=== PATIENT | female | born 1970 | race Caucasian/White ===

== ENCOUNTER 2024-11-11 10:46 | Day surgery (SDC) | payer OTHER, SELFPAY ==
[2024-11-11 12:05] VITALS: BMI 29.9
[2024-11-11 12:06] VITALS: BP 135/75; PULSE 58; RESP 18; TEMP 36.4; O2SAT 97
--- NOTE | 2024-11-11 12:23 | EXP.ANES.CKL ---
[facility] Disclaimer: The information contained in this section may have been updated after the patient was seen, as this information can be updated by other users. Medical History Skin cancer (melanoma) Normal colonoscopy delivery delivered Osteoporosis Spinal stenosis History of IBS Diabetes Hypertension Surgical History Hx of melanoma excision Family History Other Cancer Social History Smoking Status: Current every day smoker alcohol intake: never substance use type: unknown current occupational status: unemployed Travel in the last 8 weeks?: None [facility] Anesthesia Checklist Patient Identification Patient Identification: Arm Band and Verbal (Name & ) Structural Data Admitted From: Home Planned Operative Procedure/s: EGD Consent for Planned Operative Procedure(s) Verified: Yes Verified Documents: Surgical Consent and History and Physical NPO Status Verified Time NPO: 00:00 Additional verifications Anesthesia Reactions: No Airway Assessment Mallampati Score:: Class II Neurological Assessment Level of Consciousness: Awake, Alert and Appropriate Hx Seizures: No Anesthesia Plan Anesthesia Risk discussed: Yes Anesthesia Plan: Verified ASA Class: II Anesthesia Type: MAC
--- NOTE | 2024-11-11 12:55 | EXP.HP ---
History of Present Illness *Admission Date: 11/11/24 *Reason for visit:: Functional dyspepsia/globus sensation and dysphagia *History of present illness: Mrs. Ramos is a 54-year-old female who is here for diagnostic/therapeutic upper endoscopy secondary to globus sensation and dysphagia. 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 The examination is deemed medically necessary for EGD. The patient has been seen, interviewed and examined prior to the procedure by both myself and the anesthesia provider. [facility] Disclaimer: The information contained in this section may have been updated after the patient was seen, as this information can be updated by other users. Medical History Skin cancer (melanoma) Normal colonoscopy delivery delivered Osteoporosis Spinal stenosis History of IBS Diabetes Hypertension Surgical History Hx of melanoma excision Family History Other Cancer Social History (Updated 11/11/24 @ 12:24 by Keri Thorne CRNA) Smoking Status: Current every day smoker alcohol intake: never substance use type: unknown current occupational status: unemployed Travel in the last 8 weeks?: None Have you lived/traveled outside US in past 30 days?: No Contact w/someone who lives/traveled outside US past 30 days?: No Exposure to someone with infectious disease in past 14 days?: No Do you have a fever (greater than 100.4 F or 38 C)?: No Have you tested positive for COVID-19?: No Exposed to someone with COVID-19 in past 14 days?: No Do you have a sore throat?: No Do you have a cough?: No Do you have any weakness?: No Do you have any diarrhea?: No Are you experiencing any unusual bleeding?: No Do you have any muscle aches/pain?: No Do you have any abdominal pain?: No Are you experiencing loss of taste or smell?: No Review of Systems Review of Systems Review of systems (narrative): Negative *Cardiovascular Comments: Negative *Gastrointestinal Comments: Negative *Genitourinary Comments: Negative *Musculoskeletal Comments: Negative *Neurologic Comments: Negative Meds Home Medications and Allergies Home Medications ?Medication ?Instructions ?Recorded ?Confirmed ?Type atorvastatin 40 mg tablet 40 mg PO DAILY 01/24/23 11/11/24 History fenofibrate 54 mg tablet 54 mg PO DAILY 01/24/23 11/11/24 History hydroxyzine HCl 10 mg tablet 10 mg PO DAILY 01/24/23 11/11/24 History methocarbamol 500 mg tablet 500 mg PO TID 01/24/23 11/11/24 History metronidazole 0.75 % topical gel 1 applic topical BID 01/24/23 11/11/24 History mirabegron 50 mg tablet,extended 50 mg PO DAILY 01/24/23 11/11/24 History release 24 hr (Myrbetriq) nitroglycerin 0.3 mg sublingual 0.3 mg sublingual Q5M PRN Chest 01/24/23 11/11/24 History tablet Pain omeprazole 40 mg capsule,delayed 40 mg PO DAILY 01/24/23 11/11/24 History release sertraline 50 mg tablet 50 mg PO DAILY 01/24/23 11/11/24 History dicyclomine 10 mg capsule 10 mg PO DAILY 04/25/23 11/11/24 History albuterol sulfate 90 mcg/actuation 1 puff inhalation BID 09/05/24 11/11/24 History aerosol inhaler (Ventolin HFA) cholecalciferol (vitamin D3) 325 325 mcg PO WEEKLY 09/05/24 11/11/24 History mcg (13,000 unit) capsule fluticasone fur. 100 mcg-umeclid 1 inh inhalation DAILY 09/05/24 11/11/24 History 62.5 mcg-vilant 25 mcg inhalat.powder (Trelegy Ellipta) gabapentin 300 mg capsule 300 mg PO TID 09/05/24 11/11/24 History linaclotide 290 mcg capsule 290 mcg PO DAILY #90 caps 09/05/24 11/11/24 Rx (Linzess) olmesartan 40 1 tab PO DAILY 09/05/24 11/11/24 History mg-hydrochlorothiazide 12.5 mg tablet polyethylene glycol 3350 17 17 g PO DAILY 09/05/24 11/11/24 History gram/dose oral powder (Miralax) New Prescriptions to Start Prescriptions: Allergies Allergy/AdvReac Type Severity Reaction Status Date / Time Sulfa (Sulfonamide Allergy Hives Verified 11/11/24 11:57 Antibiotics) Exam Data for Last 24 hours Vital signs and Labs for Last 24 Hours: Temp Pulse Resp BP Pulse Ox O2 Del Method 97.6 F 58 L 18 135/75 97 Room Air 11/11/24 12:06 11/11/24 12:06 11/11/24 12:06 11/11/24 12:06 11/11/24 12:06 11/11/24 12:06 I & O for Last 24 hours: Intake & Output 11/08/24 11/09/24 11/10/24 11/11/24 23:59 23:59 23:59 23:59 Weight 180 lb *Routine HEENT Exam Head: Present normocephalic Eye: Present EOMI and PERRL ENT: Present mucous membranes moist *Routine Neck Exam Neck: Present supple *Routine Respiratory Exam Respiratory: Present CTA bilaterally *Routine Cardiovascular Exam Cardiovascular: Present RRR *Routine Abdominal Exam Abdominal: Present soft and normoactive bowel sounds; Absent tenderness *Routine Rectal Exam Rectal:: deferred *Routine Genitalia Exam Genitalia:: deferred *Routine Extremities Exam Extremities: Absent cyanosis, clubbing or edema *Routine Skin Exam Skin: Present warm; Absent rash *Routine Neurological Exam Neurological: Present alert and oriented X3 Assessment and Plan *Assessment and plan (1) Dysphagia: Status: Acute Category: Medical Code(s): R13.10 - Dysphagia, unspecified (2) Globus sensation: Status: Acute Category: Medical Code(s): R09.A2 - Foreign body sensation, throat (3) Functional dyspepsia: Status: Acute Category: Medical Code(s): K30 - Functional dyspepsia Plan A/P: 1. Dysphagia/globus sensation with history of functional dyspepsia is the preprocedural diagnosis. The patient will be anesthetized/sedated using MAC sedation. The patient has been seen and examined. Cardiac and lung assessment prior to the examination is stable. Proceed with planned diagnostic EGD.
--- NOTE | 2024-11-11 13:08 | HMH.PROCNOTE ---
[facility] Procedure Note Date: 11/11/24 Time: 13:15 Procedure Note:: Upper Endoscopy Procedure Report: Esophagogastroduodenoscopy with cold biopsies and TTS balloon dilation Endoscopost: Addy Pascual II, MD Referring Physician: Tevin Greer MD Date of Procedure: November 11, 2024 Equipment: Olympus GIF 190 standard upper endoscope Sedation: MAC sedation Indications: Mrs. Ramos is a 54-year-old female who is here for diagnostic/therapeutic upper endoscopy secondary to ongoing choking, globus sensation and dysphagia. She does get discomfort in her throat and this can radiate into the jaw. Her symptoms are more left-sided that are also bilateral in the cricopharyngeal region. She also has a long history of IBS constipation and is on MiraLAX, Linzess and Iberogast. She also has a long history of dyspepsia and continues to have some epigastric abdominal discomfort, fullness, bloating and occasional nausea. She often feels the need to belch but cannot. She does have spinal stenosis and receives injection therapy. Procedure: Prior to the procedure, a history and physical exam was performed, and patient's medications and allergies were reviewed. The risks, benefits and alternatives of the sedation and procedure were discussed with the patient. All questions were answered and informed consent was obtained. The patient was brought to the procedure room. Patient identification and proposed procedure were verified by the physician and the nurse. The patient was placed in a left lateral decubitus position and the scope was passed under direct vision. Throughout the procedure, the patient's blood pressure, pulse, and oxygen saturations were monitored continuously. The upper GI endoscopy was accomplished without difficulty. The patient tolerated the procedure well. Findings: The scope was passed directly into the upper esophagus and advanced to the fourth portion of duodenum and proximal jejunum. A cold biopsy was taken from the proximal jejunum for disaccharidase assay. The proximal jejunum, post bulbar duodenum, ampulla and duodenal bulb were normal with normal mucosa and conniventes. The scope was withdrawn through a normal duodenal bulb and pylorus into the stomach. There was some linear reactive gastropathy of the antrum. There was mild chronic gastritis of the body and fundus. Cold biopsies were taken from the incisura/lesser curvature to rule out H. pylori. Upon retroflexion there was no hiatal hernia. The scope was then withdrawn into the esophagus. There was no evidence of reflux esophagitis or Lott's. There were strong tertiary contractions and evidence of moderate esophageal dysmotility. There were no rings, strictures, corrugation or furrowing. There was no esophageal inlet patch. The entire esophagus was dilated to 60 English/20 mm with a TTS hydrostatic balloon. There was mild resistance at the cricopharyngeus/cricopharyngeal spasm. The remainder of the esophageal mucosa was normal. Impression: 1. Cricopharyngeal spasm status post dilation to 20 mm 2. Nonerosive GERD with moderate esophageal dysmotility 3. Mild linear reactive gastropathy of antrum and mild proximal chronic gastritis Plan: I will follow-up the biopsies. I will discuss the findings along with treatment options to the patient and family.
[2024-11-11 13:18] VITALS: BP 126/83; PULSE 77; RESP 16; TEMP 36.4; O2SAT 97
[2024-11-11 13:28] VITALS: BP 116/75; PULSE 66; RESP 16; O2SAT 99
[2024-11-11 13:38] VITALS: BP 134/71; PULSE 63; RESP 16; O2SAT 99
[2024-11-11 13:48] VITALS: BP 134/72; PULSE 59; RESP 16; TEMP 36.4; O2SAT 100
[2024-11-13 15:11] LABS: Interpretation Notes (.); Lactase 15.89 (>/= 14.0); Maltase 208.42 (>/= 110.0); Palatinase 11.71 (>/= 8.5); Reference Notes (.); Sucrase 42.82 (>/= 25.0)
== END 2024-11-11 14:03 | disposition home or self-care (01) ==
PROVIDERS: PCP Emergency Medicine; Visit Provider Internal Medicine Gastroenterology
PROC: 0DJ08ZZ Inspection of Upper Intestinal Tract, Via Natural or Artificial Opening Endoscopic (ICD-10-PCS; CPT 43239; principal; 2024-11-11 12:30)
DX: K21.9 Gastro-esophageal reflux disease without esophagitis (principal); K31.89 Other diseases of stomach and duodenum; K29.50 Unspecified chronic gastritis without bleeding; K22.4 Dyskinesia of esophagus; M62.838 Other muscle spasm; I10 Essential (primary) hypertension; E11.9 Type 2 diabetes mellitus without complications; K58.1 Irritable bowel syndrome with constipation; Z56.0 Unemployment, unspecified; Z79.899 Other long term (current) drug therapy; Z79.51 Long term (current) use of inhaled steroids; Z88.2 Allergy status to sulfonamides
CPT/HCPCS: 43239; 43249; 74360; 82657; C1726; J2003; J2704

== ENCOUNTER 2025-01-27 06:04 | Day surgery (SDC) | payer OTHER, SELFPAY ==
[2025-01-21 12:39] VITALS: BMI 34.3
--- NOTE | 2025-01-24 12:55 | EXP.HP ---
History of Present Illness *Admission Date: 01/27/25 *History of present illness: Mrs. Ramos is a 54-year-old female who is here for diagnostic colonoscopy. She did have an upper endoscopy with me in November 2024. I had recommended dietary measures and buspirone for her dyspepsia. The patient did go to the ED at [facility] on 12/12/2024. She was admitted with bilateral lower abdominal pain and she has had multiple previous abdominal surgeries for endometriosis. The patient's CAT scan had shown inflammatory changes within the midline and left pelvis suggestive of uncomplicated diverticulitis. The patient was placed on Augmentin. The examination is deemed medically necessary for diagnostic colonoscopy. The patient has been seen, interviewed and examined prior to the procedure by both myself and the anesthesia provider. [facility] Disclaimer: The information contained in this section may have been updated after the patient was seen, as this information can be updated by other users. Medical History Endometriosis Skin cancer (melanoma) Normal colonoscopy delivery delivered Osteoporosis Spinal stenosis History of IBS Diabetes Hypertension Surgical History H/O removal of cyst History of endometrial ablation Hx of melanoma excision Family History Other Cancer Colon cancer Diabetes Lung cancer Social History Smoking Status: Current every day smoker alcohol intake: never substance use type: unknown current occupational status: disabled Travel in the last 8 weeks?: None Have you lived/traveled outside US in past 30 days?: No Contact w/someone who lives/traveled outside US past 30 days?: No Exposure to someone with infectious disease in past 14 days?: No Do you have a fever (greater than 100.4 F or 38 C)?: No Have you tested positive for COVID-19?: No Exposed to someone with COVID-19 in past 14 days?: No Do you have a sore throat?: No Do you have a cough?: No Do you have any weakness?: No Are you experiencing any nausea/vomitting?: No Do you have any diarrhea?: No Are you experiencing any unusual bleeding?: No Do you have any muscle aches/pain?: No Do you have any abdominal pain?: No Are you experiencing loss of taste or smell?: No Review of Systems Review of Systems Review of systems (narrative): Negative *Cardiovascular Comments: Negative *Gastrointestinal Comments: Negative *Genitourinary Comments: Negative *Musculoskeletal Comments: Negative *Neurologic Comments: Negative Meds Home Medications and Allergies Home Medications ?Medication ?Instructions ?Recorded ?Confirmed ?Type atorvastatin 40 mg tablet 40 mg PO BID 01/24/23 01/27/25 History fenofibrate 54 mg tablet 54 mg PO DAILY 01/24/23 01/27/25 History hydroxyzine HCl 10 mg tablet 10 mg PO DAILY 01/24/23 01/27/25 History methocarbamol 500 mg tablet 500 mg PO TID 01/24/23 01/27/25 History metronidazole 0.75 % topical gel 1 applic topical BID 01/24/23 01/27/25 History mirabegron 50 mg tablet,extended 50 mg PO DAILY 01/24/23 01/27/25 History release 24 hr (Myrbetriq) nitroglycerin 0.3 mg sublingual 0.3 mg sublingual Q5M PRN Chest 01/24/23 01/27/25 History tablet Pain omeprazole 40 mg capsule,delayed 40 mg PO DAILY 01/24/23 01/27/25 History release sertraline 50 mg tablet 50 mg PO DAILY 01/24/23 01/27/25 History albuterol sulfate 90 mcg/actuation 1 puff inhalation BID 09/05/24 01/27/25 History aerosol inhaler (Ventolin HFA) cholecalciferol (vitamin D3) 325 325 mcg PO WEEKLY 09/05/24 01/27/25 History mcg (13,000 unit) capsule fluticasone fur. 100 mcg-umeclid 1 inh inhalation DAILY 09/05/24 01/27/25 History 62.5 mcg-vilant 25 mcg inhalat.powder (Trelegy Ellipta) gabapentin 300 mg capsule 300 mg PO TID 09/05/24 01/27/25 History olmesartan 40 1 tab PO DAILY 09/05/24 01/27/25 History mg-hydrochlorothiazide 12.5 mg tablet polyethylene glycol 3350 17 17 g PO DAILY 09/05/24 01/27/25 History gram/dose oral powder (Miralax) buspirone 10 mg tablet 10 mg PO BID #60 tabs 11/11/24 01/27/25 Rx sodium,potassium,mag sulfates 17.5 See Rx Instructions PO .COMPLEX 01/14/25 01/27/25 Rx gram-3.13 gram-1.6 gram oral soln #354 mL (Suprep Bowel Prep Kit) peg 3350-electrolytes 236 240 ml PO Q10M colonscopy #4,000 mL 01/15/25 01/27/25 Rx gram-22.74 gram-6.74 gram-5.86 gram solution (Golytely) New Prescriptions to Start Prescriptions: Allergies Allergy/AdvReac Type Severity Reaction Status Date / Time Sulfa (Sulfonamide Allergy Hives Verified 01/27/25 06:33 Antibiotics) Exam Data for Last 24 hours I & O for Last 24 hours: Intake & Output 01/21/25 01/22/25 01/23/25 01/24/25 23:59 23:59 23:59 23:59 Weight 200 lb *Routine HEENT Exam Head: Present normocephalic Eye: Present EOMI and PERRL ENT: Present mucous membranes moist *Routine Neck Exam Neck: Present supple *Routine Respiratory Exam Respiratory: Present CTA bilaterally *Routine Cardiovascular Exam Cardiovascular: Present RRR *Routine Abdominal Exam Abdominal: Present soft and normoactive bowel sounds; Absent tenderness *Routine Rectal Exam Rectal:: deferred *Routine Genitalia Exam Genitalia:: deferred *Routine Extremities Exam Extremities: Absent cyanosis, clubbing or edema *Routine Skin Exam Skin: Present warm; Absent rash *Routine Neurological Exam Neurological: Present alert and oriented X3 Assessment and Plan *Assessment and plan (1) Lower abdominal pain: Status: Acute Category: Medical Code(s): R10.30 - Lower abdominal pain, unspecified (2) Irritable bowel syndrome with constipation: Status: Acute Category: Medical Code(s): K58.1 - Irritable bowel syndrome with constipation Plan A/P: 1. Bilateral lower abdominal pain, constipation is the preprocedural diagnosis. The patient will be anesthetized/sedated using MAC sedation. The patient has been seen and examined. Cardiac and lung assessment prior to the examination is stable. Proceed with planned diagnostic colonoscopy.
[2025-01-27 06:21] VITALS: PULSE 61; RESP 16; TEMP 36.4; O2SAT 98; BMI 34.3
[2025-01-27 06:37] VITALS: BP 152/83; PULSE 61; RESP 16; TEMP 36.4; O2SAT 98
[2025-01-27] MEDS: LACTATED RINGERS 1000ML 1,000 ML 50 ML IV (06:43)
--- NOTE | 2025-01-27 07:02 | EXP.ANES.CKL ---
[facility] Disclaimer: The information contained in this section may have been updated after the patient was seen, as this information can be updated by other users. Medical History Endometriosis Skin cancer (melanoma) Normal colonoscopy delivery delivered Osteoporosis Spinal stenosis History of IBS Diabetes Hypertension Surgical History H/O removal of cyst History of endometrial ablation Hx of melanoma excision Family History Other Cancer Colon cancer Diabetes Lung cancer Social History Smoking Status: Current every day smoker alcohol intake: never substance use type: unknown current occupational status: disabled Travel in the last 8 weeks?: None Have you lived/traveled outside US in past 30 days?: No Contact w/someone who lives/traveled outside US past 30 days?: No Exposure to someone with infectious disease in past 14 days?: No Do you have a fever (greater than 100.4 F or 38 C)?: No Have you tested positive for COVID-19?: No Exposed to someone with COVID-19 in past 14 days?: No Do you have a sore throat?: No Do you have a cough?: No Do you have any weakness?: No Are you experiencing any nausea/vomitting?: No Do you have any diarrhea?: No Are you experiencing any unusual bleeding?: No Do you have any muscle aches/pain?: No Do you have any abdominal pain?: No Are you experiencing loss of taste or smell?: No [facility] Anesthesia Checklist Patient Identification Patient Identification: Arm Band and Verbal (Name & ) Structural Data Admitted From: Home Planned Operative Procedure/s: colonscopy Consent for Planned Operative Procedure(s) Verified: Yes Verified Documents: Surgical Consent and History and Physical NPO Status Verified Time NPO: 00:00 Additional verifications Anesthesia Reactions: No Previous Colonoscopy: Yes Airway Assessment Mallampati Score:: Class II Dentition: Good Dentition Neurological Assessment Level of Consciousness: Awake, Alert and Appropriate Hx Seizures: No Numbness or tingling in extremities: No Anesthesia Plan Anesthesia Risk discussed: Yes Anesthesia Plan: Verified ASA Class: II Anesthesia Type: MAC
--- NOTE | 2025-01-27 07:11 | P.PCN_ITS ---
[facility] Procedure Note Date: 01/27/25 Time: 07:36 Procedure Note:: Sigmoidoscopy procedure Report: Aborted colonoscopy (unprepped colon) Endoscopist: Addy Pascual II, MD Referring physician: Tevin Grere MD [address] [place] [address] , [place] [address] Date of Procedure: January 27, 2025 Equipment: Olympus [id number] adult colonoscope Sedation: MAC sedation Indication: Mrs. Ramos is a 54-year-old female who is here for diagnostic colonoscopy. She did have an upper endoscopy with fl in November 2024. I had recommended dietary measures and buspirone for her dyspepsia. The patient did go to the ED at [facility] on 12/12/2024. She was admitted with bilateral lower abdominal pain and she has had multiple previous abdominal surgeries for endometriosis. The patient's CAT scan had shown inflammatory changes within the midline and left pelvis suggestive of uncomplicated divert iculitis. The patient was placed on Augmentin. The patient did well with this but 1 week after completion of the antibiotic she started having recurrent bilateral lower abdominal pain. She has had diarrhea alternating with regular bowel function. She has noted a small amount of mucus with her bowel movements but no blood. She has had some gassiness and bloating. Her paternal grandmother had colon cancer. She reports no family history of colitis or Crohn's disease. Her last colonoscopy was with fl in December 2019 at which time she had 2 benign polyps (hyperplastic polyps x 2) removed. Procedure: Prior to the procedure, a history and physical exam was performed, and patient's medications and allergies were reviewed. The risks, benefits and alternatives of the sedation and procedure were discussed with the patient. All questions were answered and informed consent was obtained. The patient was brought to the procedure room. Patient identification and proposed procedure were verified by the physician and the nurse. The patient was placed in a left lateral decubitus position and the scope was passed under direct vision. Throughout the procedure, the patient's blood pressure, pulse, and oxygen saturations were monitored continuously. The colonoscopy was accomplished without difficulty. The patient tolerated the procedure well. Findings: On digital rectal examination there was normal rectal tone. There were no external hemorrhoids. There is external hemorrhoidal tag. The scope was then inserted through the anal canal into the rectum and advanced to 25 cm. There was an abundant amount of yellow/brownish stool impairing visualization of the colonic mucosa. Due to the inadequate bowel preparation, the procedure was aborted. The sigmoid colon and rectum were grossly normal. Impression: 1. Inadequate bowel preparation?aborted colonoscopy Plan: I would recommend repeating colonoscopy with extended 2-day bowel preparation.
[2025-01-27 07:36] VITALS: BP 121/69; PULSE 62; RESP 16; TEMP 36.4; O2SAT 97
[2025-01-27 07:46] VITALS: BP 129/68; PULSE 57; RESP 16; O2SAT 98
[2025-01-27 07:56] VITALS: BP 131/74; PULSE 54; RESP 16; O2SAT 99
[2025-01-27 08:06] VITALS: BP 142/82; PULSE 52; RESP 16; O2SAT 100
== END 2025-01-27 08:12 | disposition home or self-care (01) ==
PROVIDERS: PCP Emergency Medicine; Visit Provider Internal Medicine Gastroenterology
PROC: 0DJD8ZZ Inspection of Lower Intestinal Tract, Via Natural or Artificial Opening Endoscopic (ICD-10-PCS; CPT 45378; principal; 2025-01-27 07:30)
DX: R10.32 Left lower quadrant pain (principal); R10.31 Right lower quadrant pain; K58.1 Irritable bowel syndrome with constipation; K64.4 Residual hemorrhoidal skin tags; F17.200 Nicotine dependence, unspecified, uncomplicated; E11.9 Type 2 diabetes mellitus without complications; I10 Essential (primary) hypertension; K58.9 Irritable bowel syndrome, unspecified; M81.0 Age-related osteoporosis without current pathological fracture; M48.00 Spinal stenosis, site unspecified; Z85.820 Personal history of malignant melanoma of skin; Z79.899 Other long term (current) drug therapy; Z79.51 Long term (current) use of inhaled steroids; Z88.2 Allergy status to sulfonamides
CPT/HCPCS: 45330; J2003; J2704; J7120

== ENCOUNTER 2025-02-24 12:03 | Day surgery (SDC) | payer OTHER, SELFPAY ==
--- NOTE | 2025-02-21 10:44 | SUR.PREOP ---
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 left callback number as well
--- NOTE | 2025-02-23 12:44 | EXP.HP ---
History of Present Illness *Admission Date: 02/24/25 *History of present illness: Mrs. Ramos is a 54-year-old female who is here for diagnostic colonoscopy. She recently had attempted colonoscopy on January 27, 2025 which was aborted because of poor bowel preparation. The patient did go to the ED at [facility] on 12/12/2024. She was admitted with bilateral lower abdominal pain and she has had multiple previous abdominal surgeries for endometriosis. The patient's CAT scan had shown inflammatory changes within the midline and left pelvis suggestive of uncomplicated diverticulitis. The patient was placed on Augmentin. The patient did well with this but 1 week after completion of the antibiotic she started having recurrent bilateral lower abdominal pain. She has had diarrhea alternating with regular bowel function. She has noted a small amount of mucus with her bowel movements but no blood. She has had some gassiness and bloating. Her paternal grandmother had colon cancer. She reports no family history of colitis or Crohn's disease. Her last colonoscopy was with [facility] in December 2019 at which time she had 2 benign polyps (hyperplastic polyps x 2) removed. [facility] Disclaimer: The information contained in this section may have been updated after the patient was seen, as this information can be updated by other users. Medical History Endometriosis Skin cancer (melanoma) Normal colonoscopy delivery delivered Osteoporosis Spinal stenosis History of IBS Diabetes Hypertension Surgical History H/O removal of cyst History of endometrial ablation Hx of melanoma excision Family History Other Cancer Colon cancer Diabetes Lung cancer Social History (Updated 02/24/25 @ 12:24 by Brenda Mai RN) Smoking Status: Current every day smoker alcohol intake: never substance use type: unknown current occupational status: disabled Travel in the last 8 weeks?: None caffeine: Yes Have you lived/traveled outside [place] in past 30 days?: No Contact w/someone who lives/traveled outside [place] past 30 days?: No Exposure to someone with infectious disease in past 14 days?: No Do you have a fever (greater than 100.4 F or 38 C)?: No Have you tested positive for COVID-19?: No Exposed to someone with COVID-19 in past 14 days?: No Do you have a sore throat?: No Do you have a cough?: No Do you have any weakness?: No Do you have any diarrhea?: No Are you experiencing any unusual bleeding?: No Do you have any muscle aches/pain?: No Do you have any abdominal pain?: No Are you experiencing loss of taste or smell?: No Review of Systems Review of Systems Review of systems (narrative): Negative *Cardiovascular Comments: Negative *Gastrointestinal Comments: Negative *Genitourinary Comments: Negative *Musculoskeletal Comments: Negative *Neurologic Comments: Negative Meds Home Medications and Allergies Home Medications ?Medication ?Instructions ?Recorded ?Confirmed ?Type atorvastatin 40 mg tablet 40 mg PO BID 01/24/23 02/24/25 History fenofibrate 54 mg tablet 54 mg PO DAILY 01/24/23 02/24/25 History hydroxyzine HCl 10 mg tablet 10 mg PO DAILY 01/24/23 02/24/25 History methocarbamol 500 mg tablet 500 mg PO TID 01/24/23 02/24/25 History metronidazole 0.75 % topical gel 1 applic topical BID 01/24/23 02/24/25 History mirabegron 50 mg tablet,extended 50 mg PO DAILY 01/24/23 02/24/25 History release 24 hr (Myrbetriq) nitroglycerin 0.3 mg sublingual 0.3 mg sublingual Q5M PRN Chest 01/24/23 02/24/25 History tablet Pain omeprazole 40 mg capsule,delayed 40 mg PO DAILY 01/24/23 02/24/25 History release sertraline 50 mg tablet 50 mg PO DAILY 01/24/23 02/24/25 History albuterol sulfate 90 mcg/actuation 1 puff inhalation BID 09/05/24 02/24/25 History aerosol inhaler (Ventolin HFA) cholecalciferol (vitamin D3) 325 325 mcg PO WEEKLY 09/05/24 02/24/25 History mcg (13,000 unit) capsule fluticasone fur. 100 mcg-umeclid 1 inh inhalation DAILY 09/05/24 02/24/25 History 62.5 mcg-vilant 25 mcg inhalat.powder (Trelegy Ellipta) gabapentin 300 mg capsule 300 mg PO TID 09/05/24 02/24/25 History olmesartan 40 1 tab PO DAILY 09/05/24 02/24/25 History mg-hydrochlorothiazide 12.5 mg tablet polyethylene glycol 3350 17 17 g PO DAILY 09/05/24 02/24/25 History gram/dose oral powder (Miralax) buspirone 10 mg tablet 10 mg PO BID #60 tabs 11/11/24 02/24/25 Rx sodium,potassium,mag sulfates 17.5 See Rx Instructions PO .COMPLEX 01/14/25 02/24/25 Rx gram-3.13 gram-1.6 gram oral soln #354 mL (Suprep Bowel Prep Kit) peg 3350-electrolytes 236 240 ml PO Q10M colonscopy #4,000 mL 01/15/25 02/24/25 Rx gram-22.74 gram-6.74 gram-5.86 gram solution (Golytely) ucheiq-tipthbcd-mbrursf 1 cap PO .With meals #100 caps 01/27/25 02/24/25 Rx (pork)36,000-114,000-180k unit capsule,del rel (Creon) ondansetron 4 mg disintegrating 4 mg PO DAILY nausea and vomiting 02/20/25 02/24/25 Rx tablet #7 tabs New Prescriptions to Start Prescriptions: Allergies Allergy/AdvReac Type Severity Reaction Status Date / Time Sulfa (Sulfonamide Allergy Hives Verified 02/24/25 12:17 Antibiotics) Exam *Routine HEENT Exam Head: Present normocephalic Eye: Present EOMI and PERRL ENT: Present mucous membranes moist *Routine Neck Exam Neck: Present supple *Routine Respiratory Exam Respiratory: Present CTA bilaterally *Routine Cardiovascular Exam Cardiovascular: Present RRR *Routine Abdominal Exam Abdominal: Present soft and normoactive bowel sounds; Absent tenderness *Routine Rectal Exam Rectal:: deferred *Routine Genitalia Exam Genitalia:: deferred *Routine Extremities Exam Extremities: Absent cyanosis, clubbing or edema *Routine Skin Exam Skin: Present warm; Absent rash *Routine Neurological Exam Neurological: Present alert and oriented X3 Assessment and Plan *Assessment and plan (1) Diarrhea: Status: Acute Category: Medical Code(s): R19.7 - Diarrhea, unspecified (2) Bloating: Status: Acute Category: Medical Code(s): R14.0 - Abdominal distension (gaseous) (3) Lower abdominal pain: Status: Acute Category: Medical Code(s): R10.30 - Lower abdominal pain, unspecified (4) Irritable bowel syndrome with constipation: Status: Acute Category: Medical Code(s): K58.1 - Irritable bowel syndrome with constipation Plan A/P: 1. Lower abdominal pain with diarrhea and bloating is the preprocedural diagnosis. The patient will be anesthetized/sedated using MAC sedation. The patient has been seen and examined. Cardiac and lung assessment prior to the examination is stable. Proceed with planned diagnostic colonoscopy.
--- NOTE | 2025-02-24 06:45 | P.PCN_ITS ---
[facility] Procedure Note Date: 02/24/25 Time: 14:11 Procedure Note:: Colonoscopy Procedure Report: Colonoscopy with cold snare polypectomy Endoscopist: Addy Pascual II, MD Referring physician: Tevin Greer MD Date of Procedure: February 24, 2025 Equipment: Olympus [id number] adult colonoscope Sedation: MAC sedation Indication: Mrs. Ramos is a 54-year-old female who is here for diagnostic colonoscopy. She recently had attempted colonoscopy on January 27, 2025 which was aborted because of poor bowel preparation. The patient did go to the ED at [facility] on 12/12/2024. She was admitted with bilateral lower abdominal pain and she has had multiple previous abdominal surgeries for endometriosis. The patient's CAT scan had shown inflammatory changes within the midline and left pelvis suggestive of uncomplicated diverticulitis. The patient was placed on Augmentin. The patient did well with this but 1 week after completion of the antibiotic she started having recurrent bilateral lower abdominal pain. She has had diarrhea alternating with regular bowel function. She has noted a small amount of mucus with her bowel movements but no blood. She has had some gassiness and bloating. She was having left-sided abdominal pain as well. I did place her on Creon and she has had marked improvement of her left-sided pain. Her paternal grandmother had colon cancer. She reports no family history of colitis or Crohn's disease. Her last colonoscopy was with me in December 2019 at which time she had 2 benign polyps (hyperplastic polyps x 2) removed. Procedure: Prior to the procedure, a history and physical exam was performed, and patient's medications and allergies were reviewed. The risks, benefits and alternatives of the sedation and procedure were discussed with the patient. All questions were answered and informed consent was obtained. The patient was brought to the procedure room. Patient identification and proposed procedure were verified by the physician and the nurse. The patient was placed in a left lateral decubitus position and the scope was passed under direct vision. Throughout the procedure, the patient's blood pressure, pulse, and oxygen saturations were monitored continuously. The colonoscopy was accomplished without difficulty. The patient tolerated the procedure well. Findings: On digital rectal examination there was normal rectal tone. There were no external hemorrhoids. The colonoscope was introduced through the anal canal to the rectum and advanced to the cecum. The ileocecal valve and appendiceal orifice were identified. The scope was advanced a short distance into the ileum which appeared grossly normal. The scope was then withdrawn into the colon. The cecum and ascending colon and mucosa were grossly normal. There were 2 diminutive polyps in the transverse colon (3 and 4 mm) which were both removed via cold snare polypectomy. There were scattered diverticuli throughout the descending and sigmoid colon (LEFT colon). The rectum itself was normal. Upon retroflexion within the rectum there were grade 1-2 internal hemorrhoids. The preparation was excellent throughout with [place] Preparation Score of 9. The cecal time was 12 minutes. Impression: 1. Diminutive transverse colon polyps x 2 2. Left-sided diverticulosis 3. Grade 1-2 internal hemorrhoids Plan: I will follow-up the polyp histology and recommend repeat screening/surveillance colonoscopy again in 7 years if the polyps are adenomatous. The patient has improved with Creon. I would continue the dietary measures and a combined fiber bowel regimen (MiraLAX plus Metamucil) as well.
[2025-02-24 12:16] VITALS: BP 176/87; PULSE 83; RESP 18; TEMP 36.6; O2SAT 93; BMI 31.7
[2025-02-24] MEDS: LACTATED RINGERS 1000ML 1,000 ML 50 ML IV (12:31)
[2025-02-24 14:13] VITALS: BP 120/71; PULSE 79; RESP 16; TEMP 36.3; O2SAT 96
[2025-02-24 14:23] VITALS: BP 112/74; PULSE 69; RESP 18; O2SAT 96
[2025-02-24 14:33] VITALS: BP 122/69; PULSE 68; RESP 18; O2SAT 94
[2025-02-24 14:41] VITALS: BP 107/76; PULSE 83; RESP 18; O2SAT 95
== END 2025-02-24 14:44 | disposition home or self-care (01) ==
PROVIDERS: PCP Emergency Medicine; Visit Provider Internal Medicine Gastroenterology
PROC: 0DJD8ZZ Inspection of Lower Intestinal Tract, Via Natural or Artificial Opening Endoscopic (ICD-10-PCS; CPT 45378; principal; 2025-02-24 14:00)
DX: D12.3 Benign neoplasm of transverse colon (principal); K57.30 Diverticulosis of large intestine without perforation or abscess without bleeding; K64.0 First degree hemorrhoids; K64.1 Second degree hemorrhoids; K58.1 Irritable bowel syndrome with constipation; F17.200 Nicotine dependence, unspecified, uncomplicated; I10 Essential (primary) hypertension; M81.0 Age-related osteoporosis without current pathological fracture; Z88.2 Allergy status to sulfonamides; Z86.0102 Personal history of hyperplastic colon polyps; Z80.0 Family history of malignant neoplasm of digestive organs
CPT/HCPCS: 45385; J2003; J2704; J7120